=== PATIENT | female | born 1980 | race Caucasian/White ===

== ENCOUNTER 2017-01-27 21:08 | Emergency (ER) | payer SELFPAY ==
[2017-01-27] MEDS ORDERED: OXYCODONE HCL 5 MG TABLET ONE (23:50)
== END 2017-01-28 00:05 | disposition home or self-care (01) ==
LOC: ED 21:08
DX: G50.0 Trigeminal neuralgia (principal); F17.210 Nicotine dependence, cigarettes, uncomplicated
CPT/HCPCS: 99283 ×2; A9270